=== PATIENT | female | born 1950 | race Caucasian/White ===

== ENCOUNTER 2021-08-19 12:11 | Emergency (ER) | payer MEDICARE, SELFPAY ==
[2021-08-19 13:45] VITALS: BP 146/76; PULSE 86; RESP 16; TEMP 37.2; O2SAT 97; BMI 32.9
[2021-08-19 13:56] LABS: UTC Strep Screen (Rapid) Negative (Negative)
--- NOTE | 2021-08-19 14:01 | HMH.EDUTC ---
[facility] [place] Disposition Clinical Impression: Oral kellie Disposition: Home, Self-Care Condition on Discharge: Good Instructions: DI for Thrush, Nystatin, Thrush-Adult Additional Instructions: Swish and and spit medication as directed Make sure to use mouth wash after using your inhaler as it may lead to Oral Kellie *Monitor Temp, Over the counter Motrin or Tylenol as directed/as needed Tylenol every 4 hours and Motrin every 6 hours (as long as your family doctor has told you that you can take it) for fever or pain. and straight to ER if unable to lower temp less than 101.0 after medication given *Warm salt water gargles may help to soothe the throat *Throat Lozenges *Warm fluids like tea with honey may help to soothe the throat *Sleep elevated *Humidifier/Vaporizer Your throat swab was sent for culture. Those results are typically sent to your primary care. Be sure to follow up in 2-3 days with your family doctor/primary care physician if no improvement so they can review those result and treat if necessary. If you don?t have a primary care doctor, I recommend you get one but in the mean time, you will have to return to a walk in clinic Follow up IMMEDIATELY for new or worsening symptoms or no Noticeable improvement over the next 48-72 hours. 911 for difficulty breathing or swallowing Prescriptions: Nystatin [Nystatin Susp 500,000 Units/5mL Udc] 4 ml PO QID 10 Days #160 ml Transmission Status: Pending to [facility] #[id number] Referrals: Loida Whitney MD [Primary Care Provider] - As needed Time of Disposition: 14:09 Medical Decision Making - Od[place] Inquiry Pt receiving controlled substance: No Odilon was queried for this patient: No Vital Signs: 08/19/21 13:45 Temperature 98.9 F Temperature Source Oral Pulse Rate [Right Radial] 86 Respiratory Rate 16 Blood Pressure [Right Arm] 146/76 H Blood Pressure Mean [Right Arm] 99 Blood Pressure Source [Right Arm] Automatic Cuff Blood Pressure Position [Right Arm] Sitting 02 Sat by Pulse Oximetry 97 Oxygen Delivery Method Room Air - Lab Data Lab Results 08/19/21 13:34: Strep Scn Rapid Clinic Negative Orders (Tests/Meds): ORDERS Category Date Time Status Strep Screen Confirmation Stat Micro 08/19/21 13:34 Received Medical Decision Narrative: Patient educated to make sure to use mouth wash with inhalers to help prevent oral kellie [facility] [place] HPI - General Stated complaint: poss strep Time Seen by Provider: 08/19/21 14:01 Mode of Arrival: Ambulatory Source of Information: Patient Limitations: No Limitations Description of Symptoms (Recalled from Triage Doc. by RN): PT stated that possibly strep throat. She has a sore throat and ulcers on lip . HEENT Symptoms (Recalled from RN notes): Yes Resp Symptoms (Recalled from RN notes): No Skin Symptoms (Recalled from RN notes): No MS Symptoms (Recalled from RN notes): No Functional Status (Recalled from RN notes): n/a - History of Present Illness Provider Complaint: Patient states that she thinks she may have strep throat states that her throat started hurting yesterday and has continued to get worse States that she noticed she was having white patchy like areas on her lips and tongue States that today her throat was still sore so she came in - Related Data Previous Rx's Medication Instructions Recorded Nystatin [Nystatin Susp 500,000 4 ml PO QID 10 Days #160 ml 08/19/21 Units/5mL Udc] Allergies Allergy/AdvReac Type Severity Reaction Status Date / Time No Known Allergies Allergy Verified 08/19/21 13:54 - Worker's Comp Is this a Worker's Comp case?: No Is this an H Worker's Comp?: No Is this a [place] Worker's Comp?: No [facility] History - Hepatitis A Screen Drug use history?: No High risk sexual behaviors?: No History of sexually transmitted infection?: No Currently employed?: No Childcare worker?: No Do you have indoor plumbing?: Yes Do you have electricity?: Yes
[2021-08-19 14:15] VITALS: BP 146/76; PULSE 86; RESP 16; TEMP 37.2; O2SAT 97
== END 2021-08-19 14:15 | disposition home or self-care (01) ==
PROVIDERS: Emergency Provider Nurse Practitioner; PCP Internal Medicine
DX: B37.0 Candidal stomatitis (principal); J02.9 Acute pharyngitis, unspecified
CPT/HCPCS: 87880; 99202; G0463